=== PATIENT | female | born 1990 ===

== ENCOUNTER → 2025-08-11 12:53 | Outpatient (REF) | payer OTHER, SELFPAY | LOC: RCS 12:53 | PROVIDERS: ATTENDING PHYSICIAN Internal Medicine Cardiovascular Disease | DX: O14.23 HELLP syndrome (HELLP), third trimester (principal); O13.3 Gestational [pregnancy-induced] hypertension without significant proteinuria, third trimester; R60.0 Localized edema | CPT/HCPCS: 93306 ==